=== PATIENT | female | born 1975 | race African-American/Black ===

== ENCOUNTER → 2018-07-27 13:31 | Outpatient (CLI) | payer BC ==
[2009-04-18 11:37] VITALS: BMI 46.2
[2018-07-27 17:20] LABS: BASOPHILS 0.3 % (0-2); EOSINOPHILS 1.9 % (0-7); HEMATOCRIT 38.3 % (36.0-48.0); HEMOGLOBIN 12.1 g/dL (12-16); IMMATURE GRANULOCYTES 0.2 % (0-5); LYMPHOCYTES 21.2 % (15-50); MCH 25.7 pg (26.0-34.0); MCHC 31.6 g/dL (31.0-37.0); MCV 81.5 fL (80.0-100.0); MEAN PLATELET VOLUME 10.1 fL (7.4-10.4); MONOCYTES 7.1 % (2-11); NEUTROPHILS 69.3 % (40-80); PLATELET COUNT 297 10x3/uL (130-400); RDW 15.2 % (11.5-14.5); WBC 6.2 10x3/uL (4.8-10.8)
[2018-07-29 08:19] LABS: IMMUNOGLOBULIN A 359 mg/dL (87-352); IMMUNOGLOBULIN G 1412 mg/dL (700-1600); IMMUNOGLOBULIN M 159 mg/dL (26-217)
== END | disposition home or self-care (01) ==
LOC: D.LABREF 13:31
PROVIDERS: ATTEND Internal Medicine Pulmonary Disease
DX: J42 Unspecified chronic bronchitis (principal)